=== PATIENT | male | born 1945 | race Caucasian/White ===

== ENCOUNTER 2017-09-06 20:24 | Emergency (ER) | payer OTHER ==
[~2017-09-06] VITALS: Ht 172.7 cm; Wt 97.6 kg
[~2017-09-06 20:24] MED LIST: AMLODIPINE-BEN1 EAC3; GLIMEPIRIDE 2 MG; LISINOPRIL TAB 20M; SIMVASTATIN TAB 40M; [UNRECOGNIZED DRUG - OTHER]
[2017-09-06 21:49] LABS: HEMATOCRIT 43.4 % (38.0-50.0); MCH 31.4 PG (29.0-34.0); MCHC 34.6 G/DL (30.0-36.0); MCV 90.8 FL (86-99); PLATELET COUNT 233 K/uL (156-360); RBC DIS.WIDTH-CV 12.4 % (11.8-14.6); RBC DIS.WIDTH-SD 40.9 % (39-53); RED BLOOD COUNT 4.78 M/uL (4.00-5.50); WHITE BLOOD COUNT 10.2 K/uL (4.1-10.2)
[2017-09-06 22:11] LABS: CHLORIDE 108 mEq/L (99-109); POTASSIUM 4.8 mEq/L (3.7-5.4); SODIUM 140 mEq/L (136-147)
[2017-09-06 22:12] LABS: GLUCOSE 158 mg/dL (70-99)
[2017-09-06 22:16] LABS: CREATININE 1.3 mg/dL (0.6-1.3); GFR ESTIMATE (CALCULATED) 58 mL/min/ (58.99-99999)
[2017-09-06 22:17] LABS: TROP-I INTERPRETATION NEGATIVE; TROPONIN-I < 0.01 ng/mL (0.0-0.30); UREA NITROGEN (BUN) 17 mg/dL (9-23)
[2017-09-06 22:34] LABS: ALBUMIN 4.2 g/dL (3.2-4.8)
[2017-09-06 22:37] LABS: TOTAL PROTEIN 7.2 g/dL (6.4-8.3)
[2017-09-06 22:39] LABS: TOTAL BILIRUBIN 1.1 mg/dL (0.0-1.0)
[2017-09-06 22:40] LABS: ALKALINE PHOSPHATASE 66 IU/L (3-129)
[2017-09-06 22:41] LABS: APPEARANCE CLOUDY ((CLEAR)); BILIRUBIN NEGATIVE; BLOOD LARGE; COLOR AMBER ((YELLOW)); GLUCOSE (STRIP) NEGATIVE; KETONES NEGATIVE; LEUKOCYTES NEGATIVE; NITRITE NEGATIVE; PROTEIN (STRIP) 30; SPECIFIC GRAVITY 1.021 (1.000-1.030); UROBILINOGEN 0.2 MG/DL (0.2-1.0)
[2017-09-06 22:42] LABS: AST (GOT) 25 IU/L (2-34)
[2017-09-06 22:43] LABS: ALT (GPT) 41 IU/L (3-49); DIRECT BILIRUBIN 0.5 mg/dL (0.0-0.3)
[2017-09-06 22:44] LABS: LIPASE 84 U/L (1.0-51.0)
[2017-09-06 23:10] LABS: BACTERIA RARE /HPF; EPITHELIAL CELLS RARE /HPF; MUCUS 3+ /LPF; RED BLOOD CELLS TNTC /HPF (0-5); UCUL ADDED? YES; WHITE BLOOD CELLS 0-5 /HPF (0-5)
[2017-09-07] MEDS ORDERED: NORCO 5/3251 TABLET PO (01:22)
[2017-09-07] MEDS ORDERED: FLOMAX0.4 MG PO (01:22)
[2017-09-07] MEDS ORDERED: ONDANSETRON ODT4 MG PO (01:22)
[2017-09-07 01:34] VITALS: BP 160/80
== END 2017-09-07 01:35 | disposition home or self-care (01) ==
LOC: EME 20:24
PROVIDERS: Emergency Medicine
DX: N13.2 Hydronephrosis with renal and ureteral calculous obstruction (principal); R07.9 Chest pain, unspecified; R00.1 Bradycardia, unspecified; K57.30 Diverticulosis of large intestine without perforation or abscess without bleeding; I10 Essential (primary) hypertension; E11.9 Type 2 diabetes mellitus without complications; Z79.84 Long term (current) use of oral hypoglycemic drugs; Z95.1 Presence of aortocoronary bypass graft; Z87.442 Personal history of urinary calculi
CPT/HCPCS: 71046; 74176; 80048; 80076; 81003; 83690; 84484; 85027; 87086; 93005; 99281; 99285; J1885; J2765; J7030